=== PATIENT | male | born 1955 | race Caucasian/White ===

== ENCOUNTER 2020-10-22 10:21 | Emergency (ER) | payer BC ==
[~2020-10-22] VITALS: Ht 185.4 cm; Wt 109.1 kg
[2020-10-22 10:46] VITALS: TEMP 97.8
[2020-10-22 11:12] LABS: BASO % 0.3 % (0.0-2.0); EOS # 0.1 (0.0-0.7); EOS % 1.2 % (0-4.0); GRAN # 8.4 (1.4-6.5); GRAN % 71.2 % (42.2-75.2); HEMATOCRIT 46.5 % (42.0-52.0); HEMOGLOBIN 15.9 g/dl (13.5-18.0); LYMPH # 1.8 (1.2-3.4); LYMPH % 15.6 % (20.0-51.0); MEAN CELL VOLUME 84 fl (80.0-100.0); MEAN CORPUSCULAR HEMOGLOBIN 29 pg (27.0-31.0); MEAN CORPUSCULAR HGB CONC 34 g/dl (33.0-37.0); MEAN PLATELET VOLUME 10.5 fl (7.4-10.4); MONO # 1.3 (0.1-0.6); MONO % 11.1 % (1.7-9.3); PLATELET COUNT 185 K/mm3 (130-400); RED BLOOD COUNT 5.54 M/mm3 (4.20-5.60); REDCELL DISTRIBUTION WIDTH-CV 14.2 % (11.5-14.5)
[2020-10-22 11:24] LABS: C-REACTIVE PROTEIN 5.2 mg/dL (0.0-0.9); CALCIUM 9.3 mg/dL (8.4-10.2); POTASSIUM 4.1 mmol/L (3.4-5.0); TOTAL PROTEIN 7.1 gm/dL (6.4-8.2)
[2020-10-22 11:31] LABS: ERYTHROCYTE SEDIMENTATION RATE 11 mm/hr (0-30)
[2020-10-22] MEDS ORDERED: CEPHALEXIN500 M1 PO (13:23)
[2020-10-22] MEDS ORDERED: DOXYCYCLINE 10100 MG PO (13:23)
[2020-10-22 14:39] VITALS: BP 131/84; PULSE 77
== END 2020-10-22 14:37 | disposition home or self-care (01) ==
LOC: COL.ER 10:21
PROVIDERS: Physician Assistant
DX: M00.832 Arthritis due to other bacteria, left wrist (principal)
CPT/HCPCS: J1815; J2543; J3370; J7040

== ENCOUNTER → 2020-12-07 | Outpatient (CLI) | payer BC ==
[~2020-12-07] MED LIST: CEPHALEXIN500 M1 PO; DOXYCYCLINE 10100 MG PO
== END ==
LOC: COL.RAD 08:45
DX: M19.032 Primary osteoarthritis, left wrist (principal); M18.12 Unilateral primary osteoarthritis of first carpometacarpal joint, left hand; E11.65 Type 2 diabetes mellitus with hyperglycemia; L03.114 Cellulitis of left upper limb
CPT/HCPCS: A9503

== ENCOUNTER 2022-10-23 07:12 | Day surgery (SDC) | payer OTHER ==
[~2022-10-23] VITALS: Ht 182.9 cm; Wt 107.4 kg
[2022-10-23 07:35] VITALS: BP 129/96; PULSE 88; TEMP 97.7
[2022-10-23] MEDS ORDERED: FARXIGA10 PO (08:12)
[2022-10-23] MEDS ORDERED: ACTOS 45MG45 MG/TAB PO (08:12)
[2022-10-23] MEDS ORDERED: NOVOLIN 70/30 710 ML SQ ×2 (08:13)
[2022-10-23] MEDS ORDERED: PRAVACHOL 40MG40 MG PO (08:13)
[2022-10-23] MEDS ORDERED: VISION FORMULA1 EAC1 PO (08:14)
[2022-10-23] MEDS ORDERED: TURMERIC500 MG PO (08:14)
[2022-10-23] MEDS ORDERED: CENTRUM SILVER1 TAB PO (08:15)
[2022-10-23] MEDS ORDERED: GLUCOSAMINE 1000 PO (08:15)
[2022-10-23] MEDS ORDERED: PHARMASSURE ZIN50 MG PO (08:16)
[2022-10-23] MEDS ORDERED: MAG-OX 400400 MG/TAB PO (08:16)
[2022-10-23] MEDS ORDERED: ASHWAGANDHA300 MG PO (08:17)
--- NOTE | 2022-10-23 08:19 | NUR ---
Epi Garcia CRNA was called to notify her of the patient's increased blood sugar. She verbalized understanding and an order for Novolog 5 units IV now was obtained. No further orders at this time.
[2022-10-23 09:55] VITALS: BP 102/61; PULSE 75; TEMP 97.9
[2022-10-23 10:10] VITALS: BP 100/65; PULSE 87
[2022-10-23 10:25] VITALS: BP 117/67; PULSE 76
[2022-10-23 10:35] VITALS: BP 106/63; PULSE 74
--- NOTE | 2022-10-23 10:42 | NUR ---
0955- PATIENT RETURNS TO [facility] [place] [facility] VIA CART. PT AWAKE AND ALERT. RESPIRATIONS UNLABORED. AMBULATED TO RECLINER CHAIR WITH 2:1 SBA. PT DENIES NAUSEA OR ABDOMINAL PAIN. HOOKED UP TO MONITOR AND VS OBTAINED. CALL LIGHT AT SIDE AND PRESENT. 1002- PATIENT TOLERATING DIET PEPSI X 2 AND MUFFIN X 2 WITHOUT NAUSEA. 1017- DR. CRUZ IN ROOM SPEAKING WITH PATIENT. 1012- D/C INSTRUCTIONS REVIEWED WITH PATIENT. PT VERBALIZED UNDERSTANDING AND A COPY OF INSTRUCTIONS PROVIDED IN D/C FOLDER. 1037- PATIENT DRESSED SELF. 1042- PATIENT DISCHARGED FROM UNIT VIA W/C TO A PERSONAL VEHICLE. PT LEFT HOSPITAL IN STABLE CONDITION.
== END 2022-10-23 10:42 | disposition home or self-care (01) ==
LOC: SDCO 07:12
DX: Z12.11 Encounter for screening for malignant neoplasm of colon (principal); D12.2 Benign neoplasm of ascending colon; K63.5 Polyp of colon; R19.5 Other fecal abnormalities; K57.30 Diverticulosis of large intestine without perforation or abscess without bleeding
CPT/HCPCS: J1815; J2704; J7120

== ENCOUNTER → 2024-06-14 | Outpatient (CLI) | payer OTHER ==
[~2024-06-14] MED LIST changes: +ACTOS 45MG45 MG/TAB PO; +ASHWAGANDHA300 MG PO; +CENTRUM SILVER1 TAB PO; +FARXIGA10 PO; +GLUCOSAMINE 1000 PO; +MAG-OX 400400 MG/TAB PO; +NOVOLIN 70/30 710 ML SQ; +PHARMASSURE ZIN50 MG PO; +PRAVACHOL 40MG40 MG PO; +TURMERIC500 MG PO; +VISION FORMULA1 EAC1 PO
== END ==
LOC: DIA.ED 09:50
DX: E11.9 Type 2 diabetes mellitus without complications (principal); E78.5 Hyperlipidemia, unspecified; Z79.4 Long term (current) use of insulin
CPT/HCPCS: G0108